=== PATIENT | female | born 1955 | race Caucasian/White ===

== ENCOUNTER → 2019-05-21 12:27 | Outpatient (CLI) | payer OTHER, SELFPAY ==
--- NOTE | ~2019-05-21 | MM_ITS ---
EXAMINATION: MM screening savage BI w lisa HISTORY: Screening mammogram, family history of breast cancer in her mother. TECHNIQUE: Craniocaudal and mediolateral oblique 3-D tomosynthesis images were obtained and synthetic 2-D images were generated. CAD analysis was submitted and interpreted. COMPARISON: 05/08/2018, 04/25/2017, 03/29/2016 BREAST PARENCHYMAL COMPOSITION: The breasts are heterogeneously dense, which may obscure small masses . FINDINGS: There is no evidence of suspicious mass, calcification, or architectural distortion to sugg est malignancy in either breast. There has been no suspicious interval change. IMPRESSION: 1. No mammographic evidence of malignancy. 2. Recommend routine screening mammography in one year. BI-RADS Category 1: Negative Reviewed, dictated and finalized at location A.
== END ==
PROVIDERS: Visit Provider Nurse Practitioner
DX: Z12.31 Encounter for screening mammogram for malignant neoplasm of breast (principal)
CPT/HCPCS: 77063; 77067

== ENCOUNTER → 2020-07-10 12:18 | Outpatient (CLI) | payer OTHER, SELFPAY ==
--- NOTE | ~2020-07-10 | MM_ITS ---
EXAMINATION: MM screening savage BI w lisa HISTORY: Screening TECHNIQUE: Craniocaudal and mediolateral oblique 3-D tomosynthesis images were obtained and synthetic 2-D images were generated. CAD analysis was submitted and interpreted. COMPARISON: No prior mammogram is available for comparison at this institution. BREAST PARENCHYMAL COMPOSITION: The breasts are heterogeneously dense, which may obscure small masses . FINDINGS: There is no evidence of suspicious mass, calcification, or architectural distortion to sugg est malignancy in either breast. There has been no suspicious interval change. IMPRESSION: 1. No mammographic evidence of malignancy. 2. Recommend routine screening mammography in one year. BI-RADS Category 1: Negative Reviewed, dictated and finalized at location A.
--- NOTE | ~2020-07-10 | DEXA_ITS ---
Bone Density Report Name: Maura Reeves Age: 64 Sex: Female Ethnicity: White Date of : 1955 Indication: monitoring treatment; Referring Provider: Elizabeth, Shabana Study: Bone densitometry was performed. Exam Date: July 10, 2020 Accession number: [id number] Bone Density: Region BMD T-score Z-score Classification AP Spine (L1-L4) 1.298 2.3 3.9 Normal Femoral Neck (Left) 0.890 0.4 1.8 Normal Total Hip (Left) 1.051 0.9 2.0 Normal Femoral Neck (Right) 0.871 0.2 1.6 Normal Total Hip (Right) 0.989 0.4 1.5 Normal Total Hip Mean 1.020 0.7 1.8 Normal World Health Organization criteria for BMD impression classify patients as: Normal (T-score at or above -1.0), Osteopenia (T-score between -1.0 and -2.5), or Osteoporosis (T-score at or below -2.5). 10-year Fracture Risk: FRAX not reported because: All T-scores for Spine Total, Hip Total, Femoral Neck at or above -1.0 Treated for osteoporosis Previous Exams: Region Exam Age BMD T-score BMD Change BMD Change Date g/cm2 vs Baseline vs Previous AP Spine(L1-L4) 07/10/2020 64 1.298 2.3 -0.037* 0.012 04/25/2017 61 1.286 2.2 -0.048* -0.038* 03/18/2014 58 1.324 2.5 -0.010 -0.010 03/30/2010 54 1.335 2.6 Total Hip(Left) 07/10/2020 64 1.051 0.9 -0.058* -0.008 04/25/2017 61 1.059 1.0 -0.050* -0.016 03/18/2014 58 1.074 1.1 -0.035* -0.035* 03/30/2010 54 1.109 1.4 Total Hip(Right) 07/10/2020 64 0.989 0.4 -0.078* -0.004 04/25/2017 61 0.993 0.4 -0.074* -0.059* 03/18/2014 58 1.053 0.9 -0.014 -0.014 03/30/2010 54 1.067 1.0 *Denotes significance at 95% confidence level, LSC for AP Spine = 0.022 g/cm2, LSC for Total Hip = 0.027 g/cm2 Clinical Information Provided by Patient: Is being treated for osteoporosis Has used the following medications: HRT (i.e. estrogen/hormone therapy), Vitamin D, Calcium, MTV Patient maximum height was 66.0 Menopause Age: 56 Drinks caffeinated beverages Onset of menses at age 16 Number of children 2 Impression: The patient has normal bone mass. No significant bone loss was observed. Discussion: PATIENT UNDER TREATMENT WITH NO SIGNIFICANT BMD LOSS SINCE LAST EXAM. In an untreated patient, BMD typically declines with age. A lack of decline or gain i
== END ==
PROVIDERS: Visit Provider Nurse Practitioner
DX: Z12.31 Encounter for screening mammogram for malignant neoplasm of breast (principal); Z13.820 Encounter for screening for osteoporosis
CPT/HCPCS: 77063; 77067; 77080

== ENCOUNTER → 2021-08-27 10:27 | Outpatient (CLI) | payer OTHER, SELFPAY ==
--- NOTE | ~2021-08-27 | MM_ITS ---
EXAMINATION: MM screening savage BI w lisa HISTORY: Screening TECHNIQUE: Craniocaudal and mediolateral oblique 3-D tomosynthesis images were obtained and synthetic 2-D images were generated. CAD analysis was submitted and interpreted. COMPARISON: Comparison to multiple prior studies sequentially, with oldest reviewed study dated 01/21. BREAST PARENCHYMAL COMPOSITION: The breasts are heterogeneously dense, which may obscure small masses . FINDINGS: There is no evidence of suspicious mass, calcification, or architectural distortion to sugg est malignancy in either breast. There has been no suspicious interval change. IMPRESSION: 1. No mammographic evidence of malignancy. 2. Recommend routine screening mammography in one year. BI-RADS Category 1: Negative Reviewed, dictated and finalized at location A.
== END ==
PROVIDERS: Visit Provider Nurse Practitioner
DX: Z12.31 Encounter for screening mammogram for malignant neoplasm of breast (principal)
CPT/HCPCS: 77063; 77067

== ENCOUNTER → 2022-08-30 10:01 | Outpatient (CLI) | payer OTHER, SELFPAY ==
--- NOTE | ~2022-08-30 | MM_ITS ---
EXAMINATION: MM screening savage BI w lisa HISTORY: Screening mammogram TECHNIQUE: Craniocaudal and mediolateral oblique 3-D tomosynthesis images were obtained and synthetic 2-D images were generated. CAD analysis was submitted and interpreted. COMPARISON: 08/27/2021, 07/10/2020, 05/21/2019 and lateral screening mammogram examinations BREAST PARENCHYMAL COMPOSITION: The breasts are heterogeneously dense, which may obscure small masses . FINDINGS: Benign-appearing arterial calcification in the upper outer quadrant of the right breast. Th ere is no evidence of suspicious mass, calcification, or architectural distortion to suggest malignan cy in either breast. There has been no suspicious interval change. IMPRESSION: 1. No mammographic evidence of malignancy. 2. Recommend routine screening mammography in one year. BI-RADS Category 1: Negative Reviewed, dictated and finalized at location A.
== END ==
PROVIDERS: PCP Obstetrics & Gynecology Gynecology; Visit Provider Obstetrics & Gynecology Gynecology
DX: Z12.31 Encounter for screening mammogram for malignant neoplasm of breast (principal)
CPT/HCPCS: 77063; 77067

== ENCOUNTER 2023-06-06 01:52 | Day surgery (SDC) | payer MEDICARE, SELFPAY ==
[2023-05-24 09:28] VITALS: BMI 19.4
--- NOTE | 2023-05-24 09:35 | PC.NURSE ---
Report to the Outpatient Waiting Room, entrance under the green pavilion located off [facility], at time ___9:45AM____ on date _06/06/23 . Planned Procedure Time: ___11:45AM . Time changes happen often and if your time is changed the preop area will call you the afternoon before. - You and your visitor will be asked to self-screen and do not enter if you have any COVID symptoms. - A mask is optional within the hospital at this time. Patients may have clear liquids (water, carbonated beverages, clear teas, apple juice) until 3 hours prior to surgery with a maximum of 20 ounces. - No food from midnight until time of surgery. Take the following medications with a SIP of water the morning of surgery: ___NONE DO NOT STOP ANY OF YOUR OTHER PRESCRIPTION MEDICATIONS PRIOR TO SURGERY ?EXCEPT THE FOLLOWING Medications to discontinue per physician ___HOLD ALL VITAMINS/SUPPLEMENTS 3 DAYS PRE-OP PER ANESTHESIA Date to take last dose 06/02/23 Please no make-up, nail chinese, hairspray, perfume, deodorant, or body powder the day of surgery. No jewelry (including any body piercings) or valuables the day of surgery, leave them at home. Please take a shower or bath the night before, or the morning of, surgery with an antibacterial soap. Wear comfortable, loose fitting clothing. Children are encouraged to wear pajamas. - Jewelry must be removed prior to entering the operating room. Rings and piercings that are not removed may be cut off. - The hospital will not accept responsibility for valuables. - Please leave all valuables, including medications, at home the day of surgery. If you are going home after surgery, a licensed shuttle bus driver must drive you home. - NO public transportation without another adult if you receive anesthesia. - We recommend that an adult stay with you for 24 hours following discharge. - We also recommend that you do not drive, make important decision, drink alcoholic beverages, or take any drugs that were not prescribed by your health care provider for at least 24 hours after your discharge time. For Pediatric surgeries, we recommend two adults accompany the child home. Follow any additional instructions given to you from your surgeon. If you or anyone in your household have experienced Covid symptoms in the past week, please notify your surgeon or the nurse liaison at the phone number below for possible testing. Telephone instructions given to ____PATIENT and asked if any additional questions and then verbalized understanding. Patient advised to call surgeon office or pre surgery nurse liaison [phone] if any additional questions.
--- NOTE | 2023-06-06 07:11 | WPDHPUPDATE1 ---
History and Physical Update Update Date/Time: 06/06/23 07:11 History and Physical has been reviewed, including an updated exam of the patient. There are NO changes in the patient's condition. Risks, benefits, and alternatives have been discussed and questions answered. Patient agrees to proceed with procedure.
--- NOTE | 2023-06-06 07:12 | PM.HPGS ---
History of Present Illness History of Present Illness Consent: Risks, benefits, and alternatives have been discussed and questions answered. Patient agrees to proceed with procedure. Chief complaint: Post Menopausal Bleeding Narrative: Maura Reeves is a 67 year old female with post menopausal bleeding. It was recommended to undergo D&C hysteroscopy. Risks of infection, bleeding, perforation, and possible pathology are discussed. Patient voices understanding and agrees to proceed. Review of Systems Review of Systems: not repeated day of surgery; patient states no changes in status PMFSH Past Medical History Medical History (Updated 06/06/23 @ 07:16 by Lenore Harris MD) History of ITP Irritable bowel syndrome (normal spontaneous vaginal delivery) x2 Paroxysmal tachycardia status post cardiac ablation in 2014 Rectovaginal fistula repaired in 1997 Surgical History Surgical History (Updated 06/06/23 @ 07:15 by Lenore Harris MD) S/P anterior colporrhaphy and posterior 2018 Social History Social History Smoking status: Never smoker Alcohol intake: current Living arrangements: with family Additional living arrangements comments: HUSB Spiritual care concerns: No Meds Home Medications and Allergies Home Medications Medication Instructions Recorded Confirmed Type calcium 600 mg capsule 600 mg PO DAILY 05/24/23 05/24/23 History glucosamine sulf dipot 1 cap PO DAILY 05/24/23 05/24/23 History chlr,msm,chond 550 mg-C 30 mg-cornel 1 mg capsule (Glucosamine Chondroitin) linaclotide 290 mcg capsule 290 mcg PO DAILY 05/24/23 05/24/23 History (Linzess) multivitamin 1 tablet PO DAILY 05/24/23 05/24/23 History omega 0-xnc-ves-fish oil 1,000 mg 1 cap PO DAILY 05/24/23 05/24/23 History (120 mg-180 mg) capsule (Fish Oil) Allergies Allergy/AdvReac Type Severity Reaction Status Date / Time Cephalosporins Allergy Severe HIVES Verified 05/24/23 09:27 ceftriaxone Allergy Unknown HIVES Verified 05/24/23 09:27 Exam Const: General: healthy appearing and alert Orientation/consciousness: patient oriented x3 Resp: Effort & Inspection: normal respiratory effort GI: GI Palp: Yes Soft to palpation, No Tenderness to palpation present (GI) and No Palpable mass present : External Female Exam: normal external appearance Speculum Exam - Vagina: normal appearance of the vagina and normal vaginal discharge Speculum Exam - Cervix: normal appearance of the cervix Bimanual exam- vagina & uterus: uterine size normal and consistency normal Bimanual Exam- Adnexa, other: normal adnexae and No adnexal tenderness Neuro: General: patient oriented x3 Assessment and Plan Assessment and plan (1) Post-menopausal bleeding: Code(s): N95.0 - Postmenopausal bleeding Status: Acute Assessment and Plan: plan to proceed with D&C hysteroscopy
[2023-06-06 10:11] VITALS: BP 117/53; PULSE 53; RESP 16; TEMP 36.8; O2SAT 100
[2023-06-06] MEDS: LACTATED RINGERS 1,000 ML 30 ML IV CONT (10:50)
[2023-06-06] MEDS: ACETAMINOPHEN 500 MG TABLET 1000 MG PO (10:59)
--- NOTE | 2023-06-06 11:36 | WPDANESEPPF ---
Anes - Initial Pre Proc Eval Procedure: Operation Date: 06/06/23 11:45 Proposed Procedures p Hysteroscopy Dilation and Curettage - Lenore Harris MD Date/Time: 06/06/23 11:36 Surgeon: Lenore Harris MD Pre Op Diagnosis: Post Menopausal Bleeding Patient Data Age: 67 Gender: F Height: 1.65 m Weight: 50.1 kg Last Vital Signs Temp 98.3 F 06/06/23 10:11 Pulse 53 L 06/06/23 10:11 Resp 16 06/06/23 10:11 BP 117/53 L 06/06/23 10:11 Pulse Ox 100 06/06/23 10:11 O2 Del Method Room Air 06/06/23 10:11 Allergies Allergy/AdvReac Type Severity Reaction Status Date / Time Cephalosporins Allergy Severe HIVES Verified 06/06/23 10:05 ceftriaxone Allergy Unknown HIVES Verified 06/06/23 10:05 Home Medications Medication Instructions Recorded Confirmed Type calcium 600 mg capsule 600 mg PO DAILY 05/24/23 06/06/23 History glucosamine sulf dipot 1 cap PO DAILY 05/24/23 06/06/23 History chlr,msm,chond 550 mg-C 30 mg-cornel 1 mg capsule (Glucosamine Chondroitin) linaclotide 290 mcg capsule 290 mcg PO DAILY 05/24/23 06/06/23 History (Linzess) multivitamin 1 tablet PO DAILY 05/24/23 06/06/23 History omega 0-lir-dnw-fish oil 1,000 mg 1 cap PO DAILY 05/24/23 06/06/23 History (120 mg-180 mg) capsule (Fish Oil) Patient hx anesthesia problems: none Family hx anesthesia problems: none Results Review: All pre-operative results and documents have been reviewed as part of the pre-operative evaluation. [facility] Past Medical History Medical History History of ITP Irritable bowel syndrome (normal spontaneous vaginal delivery) x2 Paroxysmal tachycardia status post cardiac ablation in 2014 Rectovaginal fistula repaired in 1997 Surgical History Surgical History S/P anterior colporrhaphy and posterior 2018 Social History Social History (Reviewed 06/06/23 @ 11:36 by SHARI Steinberg Smoking status: Never smoker Alcohol intake: current Living arrangements: with family Additional living arrangements comments: HUSB Spiritual care concerns: No Anes - Eval Final PreProcedure Day of Procedure 06/06/23 11:36 Patient weight: normal Heart: regular rate and rhythm Lungs: clear to auscultation Airway: Mallampati scale class 1 Neurological: alert and oriented Last oral intake: >/= 8 hours ASA classification: II Emergent: no Anesthetic plan: proceed Anesthesia type and monitoring: general GIVS and standard monitoring Results Review: All pre-operative results and documents have been reviewed as part of the pre-operative evaluation. S/p ablation for SVT 2016 w success, no po meds needed post procedure. Informed Consent: The patient's anesthetic plan and its attendant risks and benefits were discussed with the patient/family/POA. Questions were solicited and answers provided to the satisfaction of the patient/family/POA.
--- NOTE | 2023-06-06 12:11 | W.PM.PROC2 ---
Procedure Note - Detailed Date of Procedure 06/06/23 Pre-op Diagnosis Post Menopausal Bleeding Post-op Diagnosis Same Procedure Performed D&C hysteroscopy with resection of polyp Surgeon Lenore Harris MD Anesthesia MAC Findings internal cervical stenosis; uterus sounds to 9cm and appears grossly atrophic; there is a clear polyp on the anterior fundus; there was a small perforation at the right fundus just off midline Description of Procedure The patient is taken to the operating room and placed under anesthesia in the dorsal lithotomy position. The bivalve speculum was placed in the vagina and the cervix grasped on the anterior lip with a tenaculum. The uterus is attempted to be sounded and not successful due to internal cervical stenosis. The small Hegar dilator is used and able to pass the stenosis. The cervix is serially dilated to a 5 Hegar. The uterus is then sounded. The hysteroscope was placed with the above sounded findings. The visualization remained good throughout the entire procedure. There was a small perforation noted. The small Aveeta resection device was used under direct visualization only to remove the clear polyp with anterior fundus away from the perforation area. The instruments were then removed and curettings were not taken. Sponge, needle, and instrument counts are correct per the OR staff. The patient was awakened from anesthesia and taken to recovery in stable condition. Estimated Blood Loss 5 Drains No Packing No Pathology Yes ( Endometrial shavings) Complications Other complications ( small perforation of the uterus) Condition Stable Disposition PACU
[2023-06-06 12:15] VITALS: BP 89/37; PULSE 57; RESP 12; O2SAT 100
[2023-06-06 12:45] VITALS: BP 100/45; PULSE 45
[2023-06-06 13:15] VITALS: BP 104/43; PULSE 42
== END 2023-06-06 13:20 | disposition home or self-care (01) ==
PROVIDERS: Visit Provider Obstetrics & Gynecology Gynecology
PROC: 0U5B8ZZ Destruction of Endometrium, Via Natural or Artificial Opening Endoscopic (ICD-10-PCS; CPT 58563; principal; 2023-06-06 11:45)
DX: N95.0 Postmenopausal bleeding (principal); N88.2 Stricture and stenosis of cervix uteri; K58.9 Irritable bowel syndrome, unspecified; I47.9 Paroxysmal tachycardia, unspecified; Z98.890 Other specified postprocedural states; Z86.79 Personal history of other diseases of the circulatory system; Z86.2 Personal history of diseases of the blood and blood-forming organs and certain disorders involving the immune mechanism
CPT/HCPCS: 58558; 88305; A9270; J1596; J2250; J2405; J2704; J3010; J7120

== ENCOUNTER 2023-11-03 11:14 | Outpatient (CLI) | payer MEDICARE, OTHER, SELFPAY ==
--- NOTE | ~2023-11-03 | MM_ITS ---
EXAMINATION: MM screening savage BI w lisa HISTORY: Screening mammogram, family history of breast cancer in her mother. TECHNIQUE: Craniocaudal and mediolateral oblique 3-D tomosynthesis images were obtained and synthetic 2-D images were generated. CAD analysis was submitted and interpreted. COMPARISON: 08/30/2022, 08/27/2021, 06/30/2020 BREAST PARENCHYMAL COMPOSITION:Dense: The breasts are extremely dense, which lowers the sensitivity o f mammography. FINDINGS: No suspicious mass, calcification, or architectural distortion are identified in either parth ast to suggest malignancy. There has been no suspicious interval change. IMPRESSION: No mammographic evidence of malignancy. Recommend routine screening mammography in one year. BI-RADS Category 1: Negative Reviewed, dictated and finalized at location .
== END 2023-11-03 11:15 | disposition home or self-care (01) ==
LOC: MICIMG 11:18
PROVIDERS: PCP Obstetrics & Gynecology Gynecology; Visit Provider Obstetrics & Gynecology Gynecology
DX: Z12.31 Encounter for screening mammogram for malignant neoplasm of breast (principal)
CPT/HCPCS: 77063; 77067

== ENCOUNTER 2024-06-23 11:20 | Outpatient (CLI) | payer MEDICARE, OTHER, SELFPAY ==
--- NOTE | ~2024-06-23 | US_ITS ---
EXAMINATION: US transvaginal INDICATION: Postmenopausal bleeding Comparison:No prior studies for comparison. TECHNIQUE: Multiple endovaginal sonographic images of the pelvis performed. FINDINGS: The uterus measures 3.7 x 2.1 x 4.6 cm. The endometrial complex measures 8 mm. The ovaries are not identified, likely atrophic. There is no free fluid in the pelvis. There are no abnormal masses seen on either side. IMPRESSION: 1. Thickened endomtrial complex. The differential diagnosis includes endometrial hyperplasia, polyp a nd carcinoma. Biopsy is recommended. Reviewed, dictated and finalized at location A. IMPRESSION: 1. Thickened endomtrial complex. The differential diagnosis includes endometria l hyperplasia, polyp and carcinoma. Biopsy is recommended.
== END 2024-06-23 11:21 | disposition home or self-care (01) ==
PROVIDERS: PCP Nurse Practitioner; Visit Provider Nurse Practitioner
DX: R93.89 Abnormal findings on diagnostic imaging of other specified body structures (principal)
CPT/HCPCS: 76830

== ENCOUNTER 2024-07-02 00:55 | Day surgery (SDC) | payer MEDICARE, OTHER, SELFPAY ==
--- NOTE | 2024-06-25 15:58 | PC.NURSE ---
Addendum entered by Adriana Platt RN 06/25/24 16:05: Hold all vitamins and supplements for 3 days per anesthesiologist.Date of last dose is 06/28/24- pt is aware ADEEL Original Note: Report to the Outpatient Waiting Room, entrance under the green pavilion located off [facility], at time _1230pm on date ___07/02/24____. Planned Procedure Time: ___2:30pm .? Time changes happen often and if your time is changed the preop area will call you the afternoon before. - You and your visitor will be asked to self-screen and do not enter if you have any COVID symptoms. Please call surgeon if you need to reschedule. - A mask is optional within the hospital at this time. Patients may have clear liquids (water, carbonated beverages, clear teas, apple juice) until 3 hours prior to surgery with a maximum of 20 ounces. - No food from midnight until time of surgery and no smoking, or chewing tobacco (or any form of nicotine). No chewing gum, candy or mints. (1130am) Take only the following medications with a SIP of water on the morning of surgery: __Tylenol if needed DO NOT STOP ANY OF YOUR OTHER PRESCRIPTION MEDICATIONS PRIOR TO SURGERY EXCEPT THE FOLLOWING Hold all vitamins and supplements for 3 days per anesthesiologist.Date Medications to discontinue per physician NONE Date to take last dose____NONE Please no make-up, nail yoruba, hairspray, perfume, deodorant, or body powder the day of surgery.? No jewelry (including any body piercings) or valuables the day of surgery, leave them at home.? Please take a shower or bath the night before, or the morning of, surgery with an antibacterial soap.? Wear comfortable, loose fitting clothing.? - Jewelry must be removed prior to entering the operating room.? Rings and piercings that are not removed may be cut off. - The hospital will not accept responsibility for valuables.? - Please leave all valuables, including medications, at home the day of surgery. If you are going home after surgery, a licensed cdl dedicated truck driver must drive you home.? - NO public transportation without another adult if you receive anesthesia. - We recommend that an adult stay with you for 24 hours following discharge. - We also recommend that you do not drive, make important decision, drink alcoholic beverages, or take any drugs that were not prescribed by your health care provider for at least 24 hours after your discharge time. Follow any additional instructions given to you from your surgeon. Telephone instructions given to ___Patient and asked if any additional questions and then verbalized understanding. Patient advised to call surgeon office or pre surgery nurse liaison [phone] if any additional questions.
[2024-06-25 16:05] VITALS: BMI 19.3
--- OUTSIDE RECORDS SUMMARY | 2024-07-02 01:00 | XMS_ITS | Encounter Summary ---
Author Organization [facility] Address [facility] [place] [address] Care Team Providers Care Mycologist Name Role Phone Foster Fowler MD Primary Care Provider [phone] Encounter Details Date Type Department Care Team (Late st Contact Info) Description 07/29/2018 Abstract [facility]FL CONVERSION [address] [place] [address] , Generic Conversion, Social History Tobacco Use Types Packs/Day Years Used Date Smoking Tobacco: Never Assessed Comments Unknown Sex and Gender Information Value Date Recorded Sex Assigned at Not on file Legal Sex Female 5:59 PM [employer] Gender Identity Not on file Sexual Orientation Not on file documented as of this encounter Plan of Treatment Not on file documented as of this encounter Visit Diagnoses Not on filedocumented in this encounter Care Teams Mycologist Relationship Specialty Start Date End Date Foster Fowler MD [address] [place] [address] PCP - General FAMILY PRACTICE 05/16/23 documented as of this encounter
--- OUTSIDE RECORDS SUMMARY | 2024-07-02 01:01 | XMS_ITS | CONTINUITY OF CARE DOCUMENT ---
Author Name austin avila Address Unknown Organization [facility] [address] [address] Address [address] [place] [address] Phone [phone] Care Team Providers Care Dean Of [employer] Name Role Phone Yordy Kincaid DO Unavailable ROSA WILKINS, JAMES Larkin Unavailable [phone] Bentley WILKINS, Kaila Capps Unavailable PROBLEMS Condition Status Date Provider Notes PAC active Nicole Strickland RN SVT active Nicole Strickland RN ENCOUNTERS Date Type Provider Location Encounter Diagnosis - In-person encounter Office Visit Yordy Kincaid DO [facility] Office VITAL SIGNS Date Observation Value Provider blood pressure, diastolic 60 mm[Hg] Merlin Carmen blood pressure, systolic 102 mm[Hg] Stacey Carmen pulse rate 70 /min Evelyn Carmen oxygen saturation, oximetry 98 % Evelyn Carmen respiratory rate E&M 16 /min Evelyn Carmen Body Mass Index (Ratio) 19.63 kg/m2 Austin Carmen weight E&M 118 [lb_av] Evelyn Carmen height E&M 65 [in_i] Evelyn Carmen HISTORY OF MEDICATION USE Medication Status Instructions Dates Provider Indications Com ments MEDROXYPROGESTERONE ACETATE 2.5 MG ORAL TABLET active one tab daily Samantha Ketterer ESTRADIOL 1 MG ORAL TABLET active one tab daily Samantha Carias LINZESS 145 MCG ORAL CAPSULE active one tab daily Samantha Carias CARDIZEM 30 MG ORAL TABLET completed when needed - Evelyn Carmen FLECAINIDE ACETATE 50 MG ORAL TABLET completed two tabs in the Am and one tab in the PM - Evelyn Carmen SOCIAL HISTORY Date Observation Value Provider social history reviewed E&M revi ewed - no changes required Yordy Kincaid DO number of grandchildren Yordy Carmen smoking status Never smoker Evelyn Carmen FAMILY HISTORY Family Member Condition Mother Family History Unkno wn INSURANCE PROVIDERS Payer name Policy type / Coverage type [employer] red democr[employer] ID [id number] Other [id number] TREATMENT PLAN Date Name Performer Cardiology Yordy Kincaid DO Cardiology:s/p succe ssful ablation concealed left lateral accessary pathway Yordy Kincaid DO HISTORY OF PROCEDURES Procedure Date Procedure Name Provider Procedure Notes S tatus EKG Yordy Kincaid DO comple chong SNOMED-CT: [id number] Current Medications Documented Yordy Kincaid DO completed
--- OUTSIDE RECORDS SUMMARY | 2024-07-02 01:01 | XMS_ITS | Data Portability ---
Author Organization [facility], [address] [place]rology ([place]) Address [address] [place] [address] Care Team Providers Care Trailer Steerer Name Role Phone GELYFOSTER Eid Primary Care Provider [phone] Assessment Encounter Date Assessment Date Assessment LastModified by Organization Details LastModified Time 05/23/2024 05/23/2024 1. The following diagnosis is categorized as a SELF-LIMITED OR MINOR PROBLEM: We discussed the fact that lentigines are actinically induced and that they are benign. We discussed the fact that they should be watched carefully for change. We discussed the importance of photoprotection using protective clothing and sunscreen with SPF thirty or higher on a regular basis. 2. The following diagnosis is categorized as a CHRONIC ILLNESS (STABLE/At Pt Goal): Benign nevi. We discussed the importance of watching for new and/or changing lesions. We discussed the worrisome changes to watch for that could indicate a melanoma. We discussed the importance of photoprotection using protective clothing and sunscreen with OTC SPF 30 or higher. Avoid peak hours of sun exposure (10am-3pm). We discussed the importance of regular self-skin examinations. 3. The following diagnosis is categorized as a SELF LIMITED OR MINOR PROBLEM: Seborrheic keratosis,: We discussed the fact that these are benign lesions requiring no treatment. We discussed the fact that removal would be considered a cosmetic procedure and would not be covered by insurance. The patient was advised that more such lesions may develop. The patient is not bothered by the lesions and does not wish to have them treated. We will observe. OTC tx for SK: wart removers, dermabrasion, 35% hydrogen peroxide daily with paint or makeup brush 4. The following diagnosis is categorized as a CHRONIC ILLNESS(At goal) Rosacea: Discussed diagnosis and treatment options. Female patients advised to stop all medication if planning or gets and to let us know. Explained potential aggravators include sunlight, spicy foods, alcohol, and chocolate. Recommend broad spectrum SPF 30 non-comedogenic daily. Recommend avoiding other known triggers. Recommend bland moisturizer such as CeraVe/Eucerin/Van icream daily. PRESCRIPTION DRUG MANAGEMENT was performed including discussion with the patient and/or family member that may include dose, expectations of treatment including potential side effects, review of patient response, and when necessary or clinically appropriate change in medication or dosage. For topical therapy discussed side effects may include irritation/redness , burning sensation upon application, dryness/desquamati on, and the potential for sensitization - Continue RX metronidazole 0.75% gel twice a day to affected areas on face. 5. The following diagnosis is categorized as a CHRONIC ILLNESS : History of non-melanoma skin cancer per pt hx only. We discussed the importance of regular skin examinations by a physician as well as monthly self-skin examinations. No evidence of recurrence in previously treated areas. We discussed the worrisome changes to watch for in skin lesions. We discussed the importance of watching for new and/or changing lesions. We discussed the importance of photoprotection using protective clothing and sunscreen with SPF 30 or higher. Pt was instructed to call the office if develops a lesion which grows or changed rapidly. 6. The following diagnosis is categorized as a CHRONIC ILLNESS Actinic keratosis/Actinic damage: I suggested we treat the lesions with liquid nitrogen today. The risks and benefits of the procedure, the risks and benefits of alternative procedures, as well as the possible consequences of not undergoing the procedure were discussed. The patient verbalized understanding and gives consent to proceed. Liquid nitrogen was applied to all affected areas. Side effects of pain, redness, blistering, scabbing, hypopigmentation and recurrence were discussed with the patient. The patient was advised that these are pre-skin cancers: they have a small risk of developing into skin cancers and their presence signifies an increased risk for developing skin cancer. Thus she was advised to use a sunscreen of at least SPF 30 and wear protective clothing. (6) Lesions were treated on the right arm (2), nose (1), upper cutaneous lip (1), left cheek (1), left neck (1). Pt to call if lesions do not heal/resolve as expected. Pt voiced understanding Of note, patient treated with RX Skin Medicinals 5-Fluourouracil 5%/Calcipotriene 0.005% cream to nose BID x7 days with appropriate reaction in 04/2023. I asked pt to return in 1 year for TBSE/Hx AK/Hx NMSC. Pt will call with any questions or concerns in the meantime. [email or web address] Not available 05/24/2024 10:05:52 Plan of Treatment Reminders Order Date Submit Date Provider Last Modified By Organization Details Last Modified Time Details Appointments Establish ed Patient 10.EST 2025 09:20A M Dr. Miranda Aldrich Not available Not available Not available Lab None recorded. Referral None recorded. Procedures None recorded. Surgeries None recorded. Imaging None recorded. Medication Orders None recorded. Patient TargetsNo targets recorded. Patient InstructionsNo instructions recorded. Reason for Referral None Reported. Problems Name Problem SNOMED Code Status Onset Date Resolution Date Notes Provider Name and Address Organization Details Recorded Time Leukopen ia 67027800 Active 2023 s/p w/u by [facility] fall incl nmL B12 & Folate then. Plan annual CBC and return to Hematolo gy if worsenin g. WBC stable at 3.6 Arielle Dubois, FELIPA, [facility] [address] [place] [address], [phone], [facility] 4 22:20:35 Constipa tion 11328655 Active f/b GI w/ tx incl Miralax &Rx Linzess (initiat ed by, so logistic ally Rx'd thru Gyne provider ) Foster Fowler MD [address] [place] [address], [phone], [facility] 4 23:04:41 Congenit al redundan t colon 988514758 Active 2023 Nicole Quach APRN, [facility] [address] [place] [address], [phone] 3, [facility] 4 11:43:16 Screenin g for malignan t neoplasm of colon Active s/p colonosc opy by GI who recommen ded then repeat in 5yrs. Foster Fowler MD [address] [facility], [facility] [place], [address], [facility] 4 23:03:22 Age-rela chong nuclear cataract of right eye [id number] 9109 Active 2023 Deanne Jason null, [facility] 4 10:34:07 Pain of joint 27393386 Active 2023 negative CCP, RF, Uric acid, and Lyme AB on . primarly hands, hips. Likely OA. Mangaged w/ OTC NSAIDs. Consider imaging/ ortho referral if/when pt desires. Arielle Dubois APRN, [facility] [address] [facility], [place], [address], [facility] 4 22:19:21 Irritabl e bowel syndrome 32059760 Active 2023 onset in adulthoo d. Prior records note tx Linzess since (02/2015) . Arielle Dubois APRN, [facility] [address] [facility], [facility] [place], [address], [facility] 4 22:20:13 Hyperlip idemia screenin g Active 2023 baseline : T 183, HDL 84, LDL 84. Low risk, no statin indicate d ACC. T 157, LDL 77, HDL 67 low risk (2.3%) Next lipids due 2025. Arielle Dubois APRN, [facility] [address] [facility], [place], [address], [facility] 4 22:21:11 Sampling of cervix for Papanico laou smear Completed 202312/19/2023 f/b Gyne (Dr. Arnold? ) Arielle Dubois APRN, [facility] [address] [facility], [place], [address], [facility] 4 22:21:32 Right upper quadrant pain 382687798 Completed 202312/19/2023 episodic (1-2x/mo ) since . nmL US, HIDA, CMP, & H.pylori fall. Improved () w/ PPI (possibl e esoph' spasm). Arielle Dubois APRN, [facility] [address] [place] [address], [phone], [facility] 4 22:21:51 Lumbago with sciatica 602811836 Active 2023 dx mid age 50's. Improved w/ PT then (& home exercise s since). Sx on right also as of summer. Con't home PT exercise s. Would refer to PT /ortho if /when pt desires (using Aleve as needed) Arielle Dubois APRN, [facility] [address] [place] [address], [address], [facility] 4 22:22:20 Shortene d [place] interval 95237037 Active 2023 OH 109ms on 03/24/17 EKG. Arielle Dubois APRN, [facility] [address] [place] [address], [address], [facility] 4 22:22:39 History of thromboc ytopenia 60714883185 108 Active 2023 s/p w/u by [facility] early where recomndd Q6mo CBC & f/u w/ HemeOnc if < 90. Stable ; PLT nmL (150) Arielle Dubois APRN, [facility] [address] [place] [address], [address], [facility] 4 22:23:48 Screenin g mammogra phy Active 2023 f/b Gyne Arielle Dubois APRN, [facility] [address] [place] [address], [address], [facility] 4 22:24:22 Age-rela chong nuclear cataract of left eye 52709946948 9102 Completed 202301/12/2024 s/p surgical tx 01/12/24 Foster Fowler MD [address] [place] [address], [phone], [facility] 4 13:31:40 Lentigo - freckle 278394290 Active 2024 [facility], [facility] 5 10:14:50 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 956690054 Active 2024 [facility], [facility] 5 10:14:50 Seborrhe ic keratosi s 970298171 Active 2024 [facility], [facility] 5 10:14:50 Melanocy tic nevus of right lower limb 48735181008 9108 Active 2024 [facility], [facility] 5 10:14:50 Actinic keratosi s 677660471 Active 2024 [facility], [facility] 5 10:15:11 Rosacea 570340199 Active 2024 [facility] 5 10:15:21 Problem Notes Documentation Provider Name and Address Organization Details Recorded Time [facility] [address] [place] [phone] Venkatesh Hair 68yo F 1955 #[id number] 01/04/2024 Chandu Fowler MD, Venkatesh Hair was seen in our office today 01/04/2024, and a copy of that evaluation is enclosed. Thank you for allowing us to participate in the care of your patient. Please contact us with any questions. Sincerely, Electronically Signed by: NNAMDI HERRERA MD Encounter Reason/DateNone recorded 01/04/2024 - 06:00AM - [facility] ([place])ProblemsReviewed Problems Leukopenia - Onset: 10/27/2023 - s/p w/u by [facility] fall incl nmL B12 & Folate then. Plan annual CBC and return to Hematology if worsening. WBC stable at 3.6 Constipation - f/b GI w/ tx incl Miralax &Rx Linzess (initiated by, so logistically Rx'd thru Gyne provider) Irritable bowel syndrome - Onset: 12/19/2023 - onset in adulthood. Prior records note tx Linzess since (02/2015). Joint pain - Onset: 12/19/2023 - negative CCP, RF, Uric acid, and Lyme AB on . primarly hands, hips. Likely OA. Mangaged w/ OTC NSAIDs. Consider imaging/ ortho referral if/when pt desires. Lumbago with sciatica - Onset: 12/19/2023, Left - dx mid age 50's. Improved w/ PT then (& home exercises since). Sx on right also as of summer. Con't home PT exercises. Would refer to PT /ortho if /when pt desires (using Aleve as needed) Congenital redundant colon - Onset: 11/02/2023 Shortened OH interval - Onset: 12/19/2023 - OH 109ms on 03/24/17 EKG. Screening mammography - Onset: 12/19/2023 - f/b Gyne Screening for malignant neoplasm of colon - s/p colonoscopy by GI who recommended then repeat in 5yrs. Hyperlipidemia screening - Onset: 12/19/2023 - baseline : T 183, HDL 84, LDL 84. Low risk, no statin indicated per ACC. T 157, LDL 77, HDL 67 low risk (2.3%) Next lipids due 2025. Age-related nuclear cataract of right eye - Onset: 12/14/2023 History of thrombocytopenia - Onset: 12/19/2023 - s/p w/u by [facility] early where recomndd Q6mo CBC & f/u w/ Aletac if < 90. Stable ; PLT nmL (150) Age-related nuclear cataract of left eye - Onset: 12/21/2023 Allergies Allergies not reviewed (last reviewed 01/04/2024) ROCEPHIN: Hives - Reaction: Hives; No Known Allergies (InActive) OnsetDate: 12/11/2014; Comment: No Known Allergies ; Some allergies listed in Document: #[id number] could not be added to this patient's chart. Please review this document and add these allergies to the patient's chart manually as needed. Medications Medications not reviewed (last reviewed 12/20/2023) NameDate Source calcium1 Tab daily12/20/23 entered Freya Acosta Glucosamine Chondroitin1 Tab daily12/20/23 entered Freya Acosta ketorolac 0.5 % eye dropsINSTILL 1 DROP IN RIGHT EYE FOUR TIMES DAILY STARTING 3 DAYS BEFORE QHIHCCM56/22/24 filled surescripts Linzess 290 mcg capsuleTAKE 1 CAPSULE BY MOUTH EVERY DAY12/13/23 filled surescripts Multivitamin 50 Plus tabletTake 1 tablet(s) every day by oral route.12/20/23 entered Freya Acosta ofloxacin 0.3 % eye dropsINSTILL 1 DROP IN RIGHT EYE FOUR TIMES DAILY STARTING 3 DAYS BEFORE GNYXJLL68/22/24 filled surescripts prednisoLONE acetate 1 % eye drops,suspensionINSTILL 1 DROP INTO RIGHT EYE FOUR TIMES DAILY STARTING 3 DAYS BEFORE DSFYXPB60/22/24 filled surescripts Family History Mother - Family history of malignant neoplasm Maternal Grandmother - Family history of malignant neoplasm - breast Social HistorySocial History not reviewed (last reviewed 12/20/2023) Substance UseDo you or have you ever smoked tobacco?: Never smokerWhat is your level of alcohol consumption?: OccasionalHow many times per week do you consume alcohol?: Less than 1 time per weekDo you use any illicit or recreational drugs?: NoWhat was the date of your most recent tobacco screening?: 11/02/2023Education and OccupationAre you currently employed?: NoWhat is your occupation?: RetiredAdvance DirectiveWhat is your code status?: DNRDo you have a medical power of ip attorney?: YesAdopted child, Type: Chronic Last Edited: 19 Dec 2015 1:49PM Last Reviewed Date: 20151219 SnomedCode: [id number] Never a smoker, Type: Chronic Identified By: QUEEN (SIU) AMERICOVANESSA Last Edited: 02 Jan 2015 5:41AM Last Reviewed Date: 20150102 SnomedCode: [id number] Surgical History Repair of vaginal wall prolapse - cystocele Colonoscopy with biopsy - Colonoscopy (camera from below into colon) Additional HistoryNone recordedHistory of Present IllnessNone recordedReview of SystemsNone recordedPhysical ExamNone recordedProcedure DocumentationSC Operative Report:Operative Report: PATIENT NAME: venkatesh hair PREOPERATIVE DIAGNOSIS: Senile cataract of the right eye. POSTOPERATIVE DIAGNOSIS: Senile cataract of the right eye. PROCEDURE PERFORMED: Cataract extraction/phacoemulsificatio n with intraocular lens implant of the right eye. SURGEON: Nnamdi Herrera MD ANESTHESIA: Topical, intracameral, monitored anesthesia care. COMPLICATIONS: None. IMPLANTS: A 20.0-diopter Ethan CNAOTO intraocular lens was placed into the capsular bag for a target refraction of -0.49. HISTORY: The risks of cataract surgery were discussed with the patient in-depth previously. The risks that were discussed included, but were not limited to, infection, bleeding, tearing of the posterior lens capsule, incomplete cataract removal, loss of lens material into the posterior chamber or vitreous, low eye pressure, high eye pressure, retinal tear, retinal detachment, retinal edema, corneal edema, double vision, loss of vision, loss of the eye, and possible requirement of additional surgery. The patient expressed an understanding of these risks and wished to proceed with the surgery. Consent was signed on the day of surgery. On the day of surgery, the patient was brought into the preoperative holding area. The surgical eye was marked. The patient was then brought into the Operating Room, where they were connected to an market analysis director and pulse oximeter. Topical anesthesia in the form of tetracaine 1% was applied. The surgical eye was then prepped and draped in the usual sterile ophthalmic fashion. Following this, a lid speculum was placed into the fornices, and the operating microscope was brought into position. With the assistance of forceps, a paracentesis wound was created. The anterior chamber was then filled with Shugarcaine, followed by Viscoat to create a stable surgical base. A biplanar incision was then initiated at the temporal limbus using a microkeratome. A cystotome was then used to initiate a capsulorrhexis, which was completed in a 360-degree continuous curvilinear fashion. Balanced salt solution was then used to perform a thorough hydrodissection of the lens. The lens nucleus was then noted to be spinning freely within the bag. Primary phacoemulsification was initiated in a [id number]-mummutk format. After 1 groove was created to divide the lens in half, the lens nucleus was cracked and then rotated. Another groove was created to divide the lens into 3 total pieces. All pieces of the nuclear lens material were removed, followed by the removal of the remaining lens cortex using the I&A handpiece. Provisc was then injected to create a space for the lens implant. No lens material remained, and the posterior capsule was noted to be intact. A 20.0-diopter CNAOTO Ethan lens was then loaded into the injector. The injector was positioned at the plane of the anterior capsular bag. The lens was injected. The lens was well centered. Viscoelastic was removed using the I&A handpiece. The wounds were stromally hydrated. Hao tests for both wounds were negative. Antibiotic eye drops were applied to the surgical eye. The patient was undraped. The patient was then transported to the PACU in stable condition, having tolerated the procedure well without any complications. DISCHARGE INSTRUCTIONS: The patient was instructed to keep the eye shield in place unless administering eyedrops. They were told to follow up in the Eye Clinic the following morning. They were told not to do any rubbing of the eye, squeezing of the eye or heavy lifting. They were told to call the Eye Clinic immediately if he experienced any drop in vision, increased pain, redness, or sensitivity to light. Power: CDE 17.41 Assessment/PlanNone recorded Return to Office Nnamdi Herrera MD for Post Op 10.EST at [address] Ophthalmology ([place]) on 01/05/2024 at 12:50 PM Nnamdi Herrera MD for Nurse Surgery Block 15.SURG at [facility] Nurse Surgery Board ([place]) on 01/12/2024 at 06:45 AM OR 05, for [facility] Surgery.SURG at [facility] OR Anesthesia [place]) on 01/12/2024 at 07:30 AM Nnamdi Herrera MD for [facility] Surgery.SURG at [facility] [place]hthalmology [place] on 01/12/2024 at 07:30 AM Nnamdi Herrera MD for Post Op 10.EST at [facility] 3rd Ophthalmology ([place]) on 01/13/2024 at 09:20 AM Miranda Genao APRN, [facility] for Established Patient 15.EST at [facility] 4th Derm ([place]) on 05/23/2024 at 09:15 AM Arielle Dubois APRN, [facility] [address] [place] [address], [phone], [facility] 01/05/2024 16:49:29 [facility] [address] [place] [phone] Venkatesh Bright Leandro 68yo F 1955 #[id number] 01/12/2024 Chandu Fowler MD, Venkatesh Hair was seen in our office today 01/12/2024, and a copy of that evaluation is enclosed. Thank you for allowing us to participate in the care of your patient. Please contact us with any questions. Sincerely, Electronically Signed by: NNAMDI HERRERA MD Encounter Reason/DateNone recorded 01/12/2024 - 07:30AM - [facility] [place]mology ([place])ProblemsReviewed Problems Leukopenia - Onset: 10/27/2023 - s/p w/u by [facility] fall incl nmL B12 & Folate then. Plan annual CBC and return to Hematology if worsening. WBC stable at 3.6 Constipation - f/b GI w/ tx incl Miralax &Rx Linzess (initiated by, so logistically Rx'd thru Gyne provider) Irritable bowel syndrome - Onset: 12/19/2023 - onset in adulthood. Prior records note tx Linzess since (02/2015). Joint pain - Onset: 12/19/2023 - negative CCP, RF, Uric acid, and Lyme AB on . primarly hands, hips. Likely OA. Mangaged w/ OTC NSAIDs. Consider imaging/ ortho referral if/when pt desires. Lumbago with sciatica - Onset: 12/19/2023, Left - dx mid age 50's. Improved w/ PT then (& home exercises since). Sx on right also as of summer '19. Con't home PT exercises. Would refer to PT /ortho if /when pt desires (using Aleve as needed) Congenital redundant colon - Onset: 11/02/2023 Shortened OH interval - Onset: 12/19/2023 - OH 109ms on 03/24/17 EKG. Screening mammography - Onset: 12/19/2023 - f/b Gyne Screening for malignant neoplasm of colon - s/p colonoscopy by GI who recommended then repeat in 5yrs. Hyperlipidemia screening - Onset: 12/19/2023 - baseline : T 183, HDL 84, LDL 84. Low risk, no statin indicated per ACC. T 157, LDL 77, HDL 67 low risk (2.3%) Next lipids due 2025. Age-related nuclear cataract of right eye - Onset: 12/14/2023 History of thrombocytopenia - Onset: 12/19/2023 - s/p w/u by [facility] early where recomndd Q6mo CBC & f/u w/ HemeOnc if < 90. Stable ; PLT nmL (150) Age-related nuclear cataract of left eye - Onset: 12/21/2023 Allergies Allergies not reviewed (last reviewed 01/04/2024) ROCEPHIN: Hives - Reaction: Hives; No Known Allergies (InActive) OnsetDate: 12/11/2014; Comment: No Known Allergies ; Some allergies listed in Documents: #[id number], #[id number], #[id number] could not be added to this patient's chart. Please review these documents and add these allergies to the patient's chart manually as needed. Medications Medications not reviewed (last reviewed 12/20/2023) NameDate Source calcium1 Tab daily12/20/23 entered Freya Acosta Glucosamine Chondroitin1 Tab daily12/20/23 entered Freya Acosta ketorolac 0.5 % eye dropsINSTILL 1 DROP IN RIGHT EYE FOUR TIMES DAILY STARTING 3 DAYS BEFORE MZJBVCL09/15/24 filled surescripts Linzess 290 mcg capsuleTAKE 1 CAPSULE BY MOUTH EVERY DAY12/13/23 filled surescripts Multivitamin 50 Plus tabletTake 1 tablet(s) every day by oral route.12/20/23 entered Freya Karla ofloxacin 0.3 % eye dropsINSTILL 1 DROP IN RIGHT EYE FOUR TIMES DAILY STARTING 3 DAYS BEFORE KYOPCHW08/15/24 filled surescripts prednisoLONE acetate 1 % eye drops,suspensionINSTILL 1 DROP INTO RIGHT EYE SIX TIMES DAILY AND INSTILL 1 DROP INTO LEFT EYE FOUR TIMES DAILY STARTING 3 DAYS BEFORE HCUOWEN08/15/24 filled surescripts timoloL maleate 0.5 % eye dropsINSTILL 1 DROP INTO RIGHT EYE TWICE DAILY01/05/24 filled surescripts Family History Mother - Family history of malignant neoplasm Maternal Grandmother - Family history of malignant neoplasm - breast Social HistorySocial History not reviewed (last reviewed 12/20/2023) Substance UseDo you or have you ever smoked tobacco?: Never smokerWhat is your level of alcohol consumption?: OccasionalHow many times per week do you consume alcohol?: Less than 1 time per weekDo you use any illicit or recreational drugs?: NoWhat was the date of your most recent tobacco screening?: 11/02/2023Education and OccupationAre you currently employed?: NoWhat is your occupation?: RetiredAdvance DirectiveWhat is your code status?: DNRDo you have a medical power of ip attorney?: YesAdopted child, Type: Chronic Last Edited: 19 Dec 2015 1:49PM Last Reviewed Date: 20151219 SnomedCode: [id number] Never a smoker, Type: Chronic Identified By: RITA QUEEN (SIU) Last Edited: 02 Jan 2015 5:41AM Last Reviewed Date: 20150102 SnomedCode: [id number] Surgical History Repair of vaginal wall prolapse - cystocele Colonoscopy with biopsy - Colonoscopy (camera from below into colon) Additional HistoryNone recordedHistory of Present IllnessNone recordedReview of SystemsNone recordedPhysical ExamNone recordedProcedure DocumentationSC Operative Report:Operative Report: PATIENT NAME: venkatesh hair PREOPERATIVE DIAGNOSIS: Senile cataract of the left eye. POSTOPERATIVE DIAGNOSIS: Senile cataract of the left eye. PROCEDURE PERFORMED: Cataract extraction/phacoemulsificatio n with intraocular lens implant of the left eye. SURGEON: Nnamdi Herrera MD ANESTHESIA: Topical, intracameral, monitored anesthesia care. COMPLICATIONS: None. IMPLANTS: A 20.5-diopter Ethan CNAOTO intraocular lens was placed into the capsular bag for a target refraction of -0.55. HISTORY: The risks of cataract surgery were discussed with the patient in-depth previously. The risks that were discussed included, but were not limited to, infection, bleeding, tearing of the posterior lens capsule, incomplete cataract removal, loss of lens material into the posterior chamber or vitreous, low eye pressure, high eye pressure, retinal tear, retinal detachment, retinal edema, corneal edema, double vision, loss of vision, loss of the eye, and possible requirement of additional surgery. The patient expressed an understanding of these risks and wished to proceed with the surgery. Consent was signed on the day of surgery. On the day of surgery, the patient was brought into the preoperative holding area. The surgical eye was marked. The patient was then brought into the Operating Room, where they were connected to an market analysis director and pulse oximeter. Topical anesthesia in the form of tetracaine 1% was applied. The surgical eye was then prepped and draped in the usual sterile ophthalmic fashion. Following this, a lid speculum was placed into the fornices, and the operating microscope was brought into position. With the assistance of forceps, a paracentesis wound was created. The anterior chamber was then filled with Shugarcaine, followed by Viscoat to create a stable surgical base. A biplanar incision was then initiated at the temporal limbus using a microkeratome. A cystotome was then used to initiate a capsulorrhexis, which was completed in a 360-degree continuous curvilinear fashion. Balanced salt solution was then used to perform a thorough hydrodissection of the lens. The lens nucleus was then noted to be spinning freely within the bag. Primary phacoemulsification was initiated in a [id number]-rkephcc format. After 1 groove was created to divide the lens in half, the lens nucleus was cracked and then rotated. Another groove was created to divide the lens into 3 total pieces. All pieces of the nuclear lens material were removed, followed by the removal of the remaining lens cortex using the I&A handpiece. Provisc was then injected to create a space for the lens implant. No lens material remained, and the posterior capsule was noted to be intact. A 20.5-diopter CNAOTO Ethan lens was then loaded into the injector. The injector was positioned at the plane of the anterior capsular bag. The lens was injected. The lens was well centered. Viscoelastic was removed using the I&A handpiece. The wounds were stromally hydrated. Hao tests for both wounds were negative. Antibiotic eye drops were applied to the surgical eye. The patient was undraped. The patient was then transported to the PACU in stable condition, having tolerated the procedure well without any complications. DISCHARGE INSTRUCTIONS: The patient was instructed to keep the eye shield in place unless administering eyedrops. They were told to follow up in the Eye Clinic the following morning. They were told not to do any rubbing of the eye, squeezing of the eye or heavy lifting. They were told to call the Eye Clinic immediately if he experienced any drop in vision, increased pain, redness, or sensitivity to light. Power: CDE 14.41 Assessment/PlanNone recorded Return to Office Nnamdi Herrera MD for Post Op 10.EST at [address] [place] ([place]) on 01/13/2024 at 09:20 AM Miranda Genao APRN, [facility] for Established Patient 15.EST at [address] [place] ([place]) on 05/23/2024 at 09:15 AM Foster Fowler MD [address] [place] [address], [phone], [facility] 01/12/2024 13:31:49 Procedures Surgical History Date Name Laterality Status Provider Name and Address Organization Details Recorded Time 01/12/20 24 [place] Operative Report completed Nnamdi Herrera MD [address] [place] [address], [phone], [facility] 01/12/2024 12:24:45 01/04/20 24 [place] Operative Report completed Nnamdi Herrera MD [address] [place] [address], [phone], [facility] 01/04/2024 12:13:43 Colonoscopy with biopsy completed Not Available Health Note 10/27/2023 12:32:43 repair of vaginal wall prolapse completed Arielle Dubois APRN, [facility] [address] [place] [address], [phone], [facility] 12/19/2023 22:24:57 Imaging Results None recorded. Procedure Notes None recorded. Medical Equipment None Reported. Allergies Allergen ID Allergen Name Allergen Category Reaction Reaction Severity Criticality Documentation Date Start Date Code Code System Note Provider Name and Address Organization Details Recorded Time 8795175 Rocephin medicatio n hives Not available Not available 03/23/20232015 9449 RxNorm React ion: Hives ; Not Available [facility] 03:59:47 Medications Name Sig Start Date Stop Date Status Note LastModified by Organization Details LastModified Time ofloxacin 0.3 % eye drops INSTILL 1 DROP IN RIGHT EYE FOUR TIMES DAILY STARTING 3 DAYS BEFORE SURGERY 05/23 completed Not Available Not Available Not Available ondansetron HCl 4 mg tablet TAKE 1 TABLET BY MOUTH EVERY 4 TO 6 HOURS NEEDED FOR NAUSEA 12/19 completed Not Available Not Available Not Available peg-electro lyte solution 420 gram oral solution MIX AND DRINK DIRECTED 12/19 completed Not Available Not Available Not Available ketorolac 0.5 % eye drops INSTILL 1 DROP IN RIGHT EYE FOUR TIMES DAILY STARTING 3 DAYS BEFORE SURGERY 05/23 completed Not Available Not Available Not Available prednisolon e acetate 1 % eye drops,suspe nsion INSTILL 1 DROP INTO RIGHT EYE SIX TIMES DAILY AND INSTILL 1 DROP INTO LEFT EYE FOUR TIMES DAILY STARTING 3 DAYS BEFORE SURGERY 05/23 completed Not Available Not Available Not Available timolol maleate 0.5 % eye drops INSTILL 1 DROP INTO RIGHT EYE TWICE DAILY 05/23 completed Not Available Not Available Not Available Multivitami n 50 Plus tablet Take 1 tablet every day by oral route. active Not Available Not Available No t Available calcium 1 Tab daily active Not Available Not Available No t Available Linzess 290 mcg capsule TAKE 1 CAPSULE BY MOUTH EVERY DAY active Not Available Not Available No t Available Glucosamine Chondroitin 1 Tab daily active Not Available Not Available No t Available Vitals Date Recorded Body height Provider Name an d Address Organization Details Last Updated DateTime 05/23/2024 167.13 cm Yohannes LOCKETTLaxmi [facility] 05/23/2024 10:12:06 Social History Question Answer Notes LastModified by Organizat ion Details LastModified Time Tobacco Smoking Status Never Smoker Not Available Health Note 10/27/2023 12:32:44 Do You Have An Advance Directive? Yes [email or web address] Information not available 10/27/2023 What Is Your Level Of Caffeine Consumption? Moderate [email or web address] Information not available 10/27/2023 What Is Your Code Status? DNR [email or web address] Information not available 10/27/2023 How Many Times Per Week Do You Exercise? 3-4 Times Per Week [email or web address] Information not available 10/27/2023 Do You Have A Medical Power Of Personal Computer Network Analyst? Yes [email or web address] Information not available 10/27/2023 What Was The Date Of Your Most Recent Tobacco Screening? 11/02/2023 [email or web address] Information not available 10/27/2023 What Is Your Relationship Status? [email or web address] Information not available 10/27/2023 Sex: Unknown Functional Status Question Answer Note LastModified by Organizat ion Details LastModified Time How many times per week do you consume alcohol? Less than 1 time per week [email or web address] Information not available 10/27/2023 Do you use any illicit or recreational drugs? No [email or web address] Information not available 10/27/2023 What is your level of alcohol consumption? Occasional [email or web address] Information not available 10/27/2023 Are you currently employed? No [email or web address] Information not available 10/27/2023 What is your occupation? Retired [email or web address] Information not available 10/27/2023 What is your exercise level? Moderate [email or web address] Information not available 10/27/2023 Mental Status None recorded. Family History Relationship Description Onset Age of this Age Resolved Age Notes LastModified by Organization Details LastModified Time Mother Family history of malignant neoplasm [email or web address] Not available 2023 12:32:42 Maternal Grandmother Family history of malignant neoplasm breast [id number] Not available 2023 22:25:35 Medical History Condition Response High Blood Pressure N COPD N Depression N Anxiety Disorder N Arthritis N Cancer N Stroke N Fibromyalgia N Kidney Disease N Attention-deficit Hyperactivity Disorder N Thyroid Problems N Anemia N Diabetes N Bleeding Disorder N Hyperlipidemia N Asthma N Seizures N Heart Disease N Osteoporosis N Gynecological HistoryNo gynecological history recorded. Obstetrics History GPAL:G 0 P 0 0 0 0 Immunizations Vaccine Type Date Status Note Provider Nam e and Address Organization Details Recorded Time zoster recombinant 9 completed Freya Acosta [facility] 12/20/2023 11:27:31 zoster recombinant 8 completed Freyanuvia Arorae [facility] 12/20/2023 11:27:31 Influenza, adjuvanted, quadrivalent, PF 3 completed Freyanuvia Arorae [facility] 12/20/2023 11:27:31 COVID-19, mRNA, LNP-S, PF, 100 mcg/0.5mL dose or 50 mcg/0.25mL dose 1 completed Freyanuvia Arorae [facility] 12/20/2023 11:27:31 COVID-19, mRNA, LNP-S, PF, 100 mcg/0.5mL dose or 50 mcg/0.25mL dose 1 completed Freyanuvia Arorae [facility] 12/20/2023 11:27:31 COVID-19, mRNA, LNP-S, PF, 100 mcg/0.5mL dose or 50 mcg/0.25mL dose 1 completed Freyanuvia Arorae [facility] 12/20/2023 11:27:31 Pneumococcal conjugate PCV20, polysaccharide [id number] conjugate, adjuvant, PF 3 completed Freyanuvia Arorae [facility] 12/20/2023 11:27:31 COVID-19, mRNA, LNP-S, bivalent, PF, 50 mcg/0.5 mL or 25mcg/0.25 mL dose 2 completed Freyanuvia Arorae [facility] 12/20/2023 11:27:31 COVID-19, mRNA, LNP-S, PF, 50 mcg/0.5 mL 3 completed Freyanuvia Arorae [facility] 12/20/2023 11:27:31 Tdap 4 completed Freyanuvia Arorae [facility] 12/20/2023 11:27:31 Tdap 3 completed Freyanuvia Arorae [facility] 12/20/2023 11:27:31 Influenza, split virus, trivalent, preservative 1 [facility] 11:27:31 Influenza, split virus, trivalent, preservative 5 completed [facility]/2023 11:27:31 Influenza, split virus, trivalent, PF 0 completed [facility]/2023 11:27:31 Influenza, split virus, trivalent, PF 7 completed [facility]/2023 11:27:31 Influenza, split virus, trivalent, PF 6 completed [facility]/2023 11:27:31 Influenza, split virus, trivalent, PF 6 completed [facility]/2023 11:27:31 Influenza, split virus, quadrivalent, PF 9 completed [facility] 12/20/2023 11:27:31 Influenza, split virus, quadrivalent, PF 2 completed [facility] 12/[facility]/2023 11:27:31 Influenza, split virus, quadrivalent, PF 8 completed [facility] 12/20/2023 11:27:31 Influenza, split virus, quadrivalent, PF 4 completed [facility] 12/20/2023 11:27:31 Past Encounters Encounter ID Performer Location Encounter Start Date Encounter Closed Date Diagnosis/Indication Diagnosis SNOMED-CT Code Diagnosis ICD10 Code Diagnosis Note [id number] Nicole Quach APRN, [facility] [address] [facility] ([place]) [address] [facility],[address] [place] [address] 11/02/2023 11:15:03 11/02/2023 12:24:22 Constipation 26959074 K59.00 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 History of polyp of colon 526129491 Z86.010 [id number] Arielle Dubois APRN, [facility] ([place]) [address] [place] [address] 12/20/2023 11:23:03 12/20/2023 11:51:52 Age-related nuclear cataract of right eye 4476035879 41086 H25.11 Preoperative state 79307 002 Z01.818 [id number] [facility] ([place] [address] [place] [address] 01/04/2024 06:10:40 01/11/2024 15:33:55 [id number] Nnamdi Herrera MD [facility] ([place]) [address] [place] [address], [address] [place] [address] 01/04/2024 06:10:41 01/05/2024 21:21:35 [id number] Arley Giron MD [facility] ([place]) [address] [place] [address] 01/12/2024 06:56:10 01/24/2024 11:42:47 [id number] Nnamdi Herrera MD [facility] [place]) [address] [place] [address], [address] [place] [address] 01/12/2024 06:56:11 01/12/2024 17:12:13 [id number] Miranda Genao APRN, [facility] 4th Derm ([place]) [address] [facility],4[address] [place] [address] 05/23/2024 10:00:32 05/23/2024 10:50:51 Melanocytic nevus of right upper limb 956773933 D22.61 Melanocyti c nevus of right lower limb 8763864699 37472 D22.71 Seborrheic keratosis 394 638859 L82.1 Lentigo - freckle 531190 006 L81.4 History of malignant neoplasm of skin excluding melanoma 697777411 Z85.828 Actinic keratosis 240646 007 L57.0 Sharita 580933416 L71.9 Health Concerns Section Related Observation LastModified by Organization Detai ls LastModified Time None Recorded Concern Status LastModified by Organization Details LastModified Time None Recorded Advance Directives Directive Y: Payers Insurance Date Sequence Insurance Name Policy Number Policy Posada Covered Member ID Posada Member ID Guarantor Name 05/24/2024 1 [place] Venkatesh Hair [id number] 1 Venkatesh Hair 05/23/2024 2 [employer] (MEDICARE SUPPLEMENT) PLAN N Venkatesh Hair [id number] Venkatesh Hair 05/23/2024 [place] - PART A - [facility] (MEDICARE) Venkatesh Hair [id number] 1 Venkatesh Hair Notes Date Note Type Note Provider Name and Address Organization Details Recorded Time 4 text/html [facility] PRE-ANESTHETIC EVALUATIONReported bypatient.Reason for Visit:PROPOSED PROCEDURE: PHACO / IOL RIGHT; SURGEON: Javier; PREOP DIAGNOSIS: Cataract Review of Systems General:Exercise tolerance moderate; Denies SOB, CLAY, PND; Denies chest pain or chest tightness Cardiac:No Hx of CAD; Hyperlipidemia; S/P Ablation procedure; H/O SVT Pulmonary:Respiratory system at baseline Prior Anesthetic Complication:no history of anesthesia complications Family Anesthetic Hx:no history of anesthesia complications Physical Exam: AirwayMP II TeethCrowns NeckFull range of motion CardiovascularRegular rate and rhythm RespiratoryClear to auscultation bilaterally; No wheeze noted GastrointestinalNPO status >6 hrs solids, >2 hrs clear liquids Vital Signs:Vital signs reviewed. Please refer to nursing preop note for values Assessment:ASA PS: II Plan:MAC Discussion:I have discussed with the patient the anesthetic plan, alternatives, pertinent risks, and complications; including but not limited to PONV, dental injury, sore throat, NE, stroke, etc. All questions were answered. Patient verbalize(s) understanding and agree(s) to proceed. Cliff Giron MD [address] [place] [address], [phone], [facility] 01/04/2024 06:48:14 4 text/html [facility] PRE-ANESTHETIC EVALUATIONReported bypatient.Reason for Visit:PROPOSED PROCEDURE: PHACO / IOL LEFT; SURGEON: Jaiver; PREOP DIAGNOSIS: Cataract Review of Systems General:No change in medical hx since last procedure; Exercise tolerance moderate; Denies SOB, CLAY, PND; Denies chest pain or chest tightness Cardiac:No Hx of CAD; Hyperlipidemia; S/P Ablation procedure; H/O SVT Pulmonary:Respiratory system at baseline Prior Anesthetic Complication:no history of anesthesia complications Family Anesthetic Hx:no history of anesthesia complications Physical Exam: AirwayMP II TeethCrowns NeckFull range of motion CardiovascularRegular rate and rhythm RespiratoryClear to auscultation bilaterally; No wheeze noted GastrointestinalNPO status >6 hrs solids, >2 hrs clear liquids Vital Signs:Vital signs reviewed. Please refer to nursing preop note for values Assessment:ASA PS: II Plan:MAC Discussion:I have discussed with the patient the anesthetic plan, alternatives, pertinent risks, and complications; including but not limited to PONV, dental injury, sore throat, NE, stroke, etc. All questions were answered. Patient verbalize(s) understanding and agree(s) to proceed. Cliff Giron MD [address] [place] [address], [phone], [facility] 01/12/2024 07:49:46 5 text/html TBSElocation: upper lip, left cheek, left neckduration: 6 monthitchyHx of skin cancer- yes per pt report Patient was informed that Dr. Traylor is the supervising physician for Miranda Genao (Derm) and the physician is available for consultation if needed. Miranda Genao, MEASUREMENT COORDINATOR, [facility] [address] [place] [address], [phone], [facility] 05/24/2024 10:06:27 OBGyn Episode No OBEpisode recorded.
--- OUTSIDE RECORDS SUMMARY | 2024-07-02 01:01 | XMS_ITS | Clinical Summary ---
Author Organization [facility] Address [address] [place] [address] Care Team Providers Care Early Years Teacher Name Role Phone Foster Fowler MD Primary Care Provider [phone] Social History Tobacco Use Types Packs/Day Years Used Date Smoking Tobacco: Never Assessed Comments Unknown Sex and Gender Information Value Date Recorded Sex Assigned at Not on file Legal Sex Female 5:59 PM [employer] Gender Identity Not on file Sexual Orientation Not on file Plan of Treatment Health Maintenance Due Date Last Done Comments Colorectal Cancer Screening Colonoscopy (10 Years) 1957 Hepatitis C 10/25/1975 Mammogram Screening 1997 Annual Medicare Wellness Visit 2022 Dexa Scan (General) 2022 COVID-19 Vaccine ( season) 2023 12/21/2022, 12/03/2021, 01/21/2021, Additional history exists RSV Immunization or 60+ Years (1 - 1-dose 75+ series) 2032 DTaP, Tdap and Td Vaccines (3 - Td or Tdap) 04/02/2033 04/02/2023, 12/11/2012 Zoster Vaccines Completed 05/22/2018, 12/05/2017 Pneumococcal Vaccine: 50+ Years Completed 01/24/2023 Meningococcal B Vaccine Aged Out No l onger eligible based on patient's age to complete this topic Meningococcal Vaccine Aged Out No florinda yuli eligible based on patient's age to complete this topic RSV Immunizations Under 20 Months Aged Out No longer eligible based on patient's age to complete this topic Insurance MED REPLACE [employer] Care Teams Early Years Teacher Relationship Specialty Start Date End Date Foster Fowler MD [address] [place] [address] PCP - General FAMILY PRACTICE 05/16/23
--- NOTE | 2024-07-02 08:41 | WPDHPUPDATE1 ---
History and Physical Update Update Date/Time: 07/02/24 08:41 History and Physical has been reviewed, including an updated exam of the patient. There are NO changes in the patient's condition. Risks, benefits, and alternatives have been discussed and questions answered. Patient agrees to proceed with procedure.
--- NOTE | 2024-07-02 08:41 | PM.HPGS ---
History of Present Illness History of Present Illness Consent: Risks, benefits, and alternatives have been discussed and questions answered. Patient agrees to proceed with procedure. Chief complaint: post menopausal bleeding Narrative: Maura Reeves is a 68 year old female with postmenopausal bleeding. Pelvic ultrasound shows a thickened endometrium at 8mm. It was recommended to undergo D&C hysteroscopy. Risks of infection, bleeding, perforation, and possible pathology are reviewed. Patient voices understanding and agrees to proceed. Review of Systems Review of Systems: not repeated day of surgery; patient states no changes in status PMFSH Past Medical History Medical History Rectovaginal fistula repaired in 1997 Paroxysmal tachycardia status post cardiac ablation in 2014 History of ITP Irritable bowel syndrome (normal spontaneous vaginal delivery) x2 Surgical History Surgical History (Updated 07/02/24 @ 08:44 by Lenore Harris MD) History of hysteroscopy 06/14 History of cardiac radiofrequency ablation History of rectal surgery Repair of rectovaginal fistula 98 S/P anterior colporrhaphy and posterior 2018 Social History Social History Smoking status: Never smoker Alcohol intake: current Alcohol use details: 1 per month Substance use: never Living arrangements: with family Additional living arrangements comments: Spiritual care concerns: No Meds Home Medications and Allergies Home Medications ?Medication ?Instructions ?Recorded ?Confirmed ?Type calcium 600 mg capsule 600 mg PO DAILY 05/24/23 06/25/24 History glucosamine sulf dipot 1 cap PO DAILY 05/24/23 06/25/24 History chlr,msm,chond 550 mg-C 30 mg-cornel 1 mg capsule (Glucosamine Chondroitin) linaclotide 290 mcg capsule 290 mcg PO DAILY 05/24/23 06/25/24 History (Linzess) multivitamin 1 tablet PO DAILY 05/24/23 06/25/24 History omega 3-eqq-fop-fish oil 1,000 mg 1 cap PO DAILY 05/24/23 06/25/24 History (120 mg-180 mg) capsule (Fish Oil) Allergies Allergy/AdvReac Type Severity Reaction Status Date / Time Cephalosporins Allergy Severe HIVES Verified 06/25/24 15:47 ceftriaxone Allergy Unknown HIVES Verified 06/25/24 15:47 Exam Const: General: healthy appearing and alert Orientation/consciousness: patient oriented x3 Resp: Effort & Inspection: normal respiratory effort : External Female Exam: normal external appearance Speculum Exam - Vagina: normal appearance of the vagina and normal vaginal discharge Speculum Exam - Cervix: normal appearance of the cervix Bimanual exam- vagina & uterus: uterine size normal and consistency normal Bimanual Exam- Adnexa, other: normal adnexae and No adnexal tenderness Neuro: General: patient oriented x3 Assessment and Plan Assessment and plan (1) Post-menopausal bleeding: Code(s): N95.0 - Postmenopausal bleeding Status: Acute Assessment and Plan: Plan to proceed with D&C hysteroscopy
[2024-07-02] MEDS: LACTATED RINGERS 1,000 ML 30 ML IV CONT (13:00)
[2024-07-02] MEDS: ACETAMINOPHEN 500 MG TABLET 1000 MG PO (13:09)
[2024-07-02 13:15] VITALS: BP 125/63; PULSE 50; RESP 16; TEMP 36.4; O2SAT 100
--- NOTE | 2024-07-02 13:58 | P.PNAN_ITS ---
Anes - Initial Pre Proc Eval Procedure: Operation Date: 07/02/24 14:30 Proposed Procedures p Hysteroscopy Dilation and Curettage - Lenore Harris MD Date/Time: 07/02/24 13:58 Surgeon: Lenore Harris MD Pre Op Diagnosis: post menopausal bleeding Patient Data Age: 68 Gender: F Height: 1.65 m Weight: 51.5 kg Last Vital Signs Temp 36.4 C 07/02/24 13:15 Pulse 50 L 07/02/24 13:15 Resp 16 07/02/24 13:15 BP 125/63 07/02/24 13:15 Pulse Ox 100 07/02/24 13:15 O2 Del Method Room Air 07/02/24 13:15 Allergies Allergy/AdvReac Type Severity Reaction Status Date / Time Cephalosporins Allergy Severe HIVES Verified 07/02/24 13:08 ceftriaxone Allergy Unknown HIVES Verified 07/02/24 13:08 Home Medications ?Medication ?Instructions ?Recorded ?Confirmed ?Type calcium 600 mg capsule 600 mg PO DAILY 05/24/23 06/25/24 History glucosamine sulf dipot 1 cap PO DAILY 05/24/23 06/25/24 History chlr,msm,chond 550 mg-C 30 mg-cornel 1 mg capsule (Glucosamine Chondroitin) linaclotide 290 mcg capsule 290 mcg PO DAILY 05/24/23 06/25/24 History (Linzess) multivitamin 1 tablet PO DAILY 05/24/23 06/25/24 History omega 7-dmp-uqw-fish oil 1,000 mg 1 cap PO DAILY 05/24/23 06/25/24 History (120 mg-180 mg) capsule (Fish Oil) Patient hx anesthesia problems: none Family hx anesthesia problems: none Results Review: All pre-operative results and documents have been reviewed as part of the pre- operative evaluation. [facility] Past Medical History Medical History Rectovaginal fistula repaired in 1997 Paroxysmal tachycardia status post cardiac ablation in 2014 History of ITP Irritable bowel syndrome (normal spontaneous vaginal delivery) x2 Surgical History Surgical History History of hysteroscopy 06/14 History of cardiac radiofrequency ablation History of rectal surgery Repair of rectovaginal fistula 98 S/P anterior colporrhaphy and posterior 2018 Social History Social History Smoking status: Never smoker Alcohol intake: current Alcohol use details: 1 per month Substance use: never Living arrangements: with family Additional living arrangements comments: Spiritual care concerns: No Anes - Eval Final PreProcedure Day of Procedure 07/02/24 13:58 Patient weight: thin Heart: regular rate and rhythm Lungs: clear to auscultation Airway: Mallampati scale class II Neurological: alert and oriented Last oral intake: >/= 8 hours ASA classification: II Emergent: no Anesthetic plan: proceed Anesthesia type and monitoring: general GIVS and standard monitoring Results Review: All pre-operative results and documents have been reviewed as part of the pre- operative evaluation. Informed Consent: The patient's anesthetic plan and its attendant risks and benefits were discussed with the patient/family/POA. Questions were solicited and answers provided to the satisfaction of the patient/family/POA.
--- NOTE | 2024-07-02 15:15 | W.PM.PROC2 ---
Procedure Note - Detailed Date of Procedure 07/02/24 Pre-op Diagnosis post menopausal bleeding Post-op Diagnosis Same Procedure Performed D&C hysteroscopy Surgeon Lenore Harris MD Anesthesia MAC Findings Uterus sounds to 4.5cm and is severely atrophic. Description of Procedure The patient is taken to operating and placed under anesthesia in the dorsal lithotomy position. She was prepped and draped in the usual sterile fashion. [place] speculum was placed in the vagina and the cervix was grasped on the anterior lip with a tenaculum. The uterus is sounded to 4.5cm. The diagnostic hysteroscope was placed. With no abnormalities noted, pictures were taken and the hysteroscope was removed. The sharp curette was used to curette the endometrium until a good uterine cry was noted in all areas. Minimal if any material was obtained consistent with the visual appearance. All instruments were removed. Sponge, needle, and instrument counts are correct per the OR staff. The patient was taken to recovery in stable condition. Estimated Blood Loss 5 Drains No Packing No Pathology Yes (Endometrial curettings) Complications No immediate complications Condition Stable Disposition PACU
[2024-07-02 15:16] VITALS: BP 97/56; PULSE 54; RESP 14; O2SAT 100
[2024-07-02 15:46] VITALS: BP 118/65; PULSE 50; RESP 16
[2024-07-02 16:03] VITALS: BP 118/63; PULSE 58; RESP 18
== END 2024-07-02 16:06 | disposition home or self-care (01) ==
PROVIDERS: PCP Nurse Practitioner; Visit Provider Obstetrics & Gynecology Gynecology
PROC: 0U5B8ZZ Destruction of Endometrium, Via Natural or Artificial Opening Endoscopic (ICD-10-PCS; CPT 58563; principal; 2024-07-02 14:30)
DX: R93.89 Abnormal findings on diagnostic imaging of other specified body structures (principal); N85.8 Other specified noninflammatory disorders of uterus; K58.9 Irritable bowel syndrome, unspecified; I47.9 Paroxysmal tachycardia, unspecified; Z98.890 Other specified postprocedural states; Z87.19 Personal history of other diseases of the digestive system; Z86.79 Personal history of other diseases of the circulatory system; Z86.2 Personal history of diseases of the blood and blood-forming organs and certain disorders involving the immune mechanism
CPT/HCPCS: 58558; 88305; A9270; J2704; J3010; J7120

== ENCOUNTER 2025-01-10 13:16 | Outpatient (CLI) | payer MEDICARE, SELFPAY ==
--- NOTE | ~2025-01-10 | DEXA_ITS ---
Bone Density Report Name: EMANUEL GRAY Age: 69 Sex: Female Ethnicity: White Date of : 1955 Indication: postmenopausal; screening for osteoporosis; height loss; Referring Provider: CASTILLO SMITH Study: Bone densitometry was performed. Exam Date: January 10, 2025 Accession number: [id number] Bone Density: Region BMD T-score Z-score Classification AP Spine(L2, L3) 1.258 1.8 3.8 Normal Femoral Neck (Left) 0.865 0.1 1.8 Normal Total Hip (Left) 0.959 0.1 1.5 Normal Femoral Neck (Right) 0.860 0.1 1.7 Normal Total Hip (Right) 0.933 -0.1 1.3 Normal Total Hip Mean 0.946 0.0 1.4 Normal World Health Organization criteria for BMD impression classify patients as: Normal (T-score at or above -1.0), Osteopenia (T-score between -1.0 and -2.5), or Osteoporosis (T-score at or below -2.5). 10-year Fracture Risk: FRAX not reported because: All T-scores for Spine Total, Hip Total, Femoral Neck at or above -1.0 Previous Exams: -- Region Exam Age BMD T-score BMD Change BMD Change Date g/cm2 vs Baseline vs Previous -- AP Spine (L2-L3) 01/10/2025 69 1.258 1.8 -8.2%* -4.8%* 07/10/2020 64 1.321 2.4 -3.7%* 2.8%* 04/25/2017 61 1.285 2.1 -6.3%* -5.2%* 03/18/2014 58 1.355 2.7 -1.2% -1.2% 03/30/2010 54 1.371 2.8 Total Hip(Left) 01/10/2025 69 0.959 0.1 -13.6%* -8.8%* 07/10/2020 64 1.051 0.9 -5.2%* -0.7% 04/25/2017 61 1.059 1.0 -4.5%* -1.4% 03/18/2014 58 1.074 1.1 -3.1%* -3.1%* 03/30/2010 54 1.109 1.4 Total Hip(Right) 01/10/2025 69 0.933 -0.1 -12.5%* -5.6%* 07/10/2020 64 0.989 0.4 -7.3%* -0.4% 04/25/2017 61 0.993 0.4 -6.9%* -5.6%* 03/18/2014 58 1.053 0.9 -1.3% -1.3% 03/30/2010 54 1.067 1.0 -- *Denotes significance at 95% confidence level, LSC for AP Spine = 0.022 g/cm2, LSC for Total Hip = 0.027 g/cm2 Rate of change results reflect vertebral levels common to all scans Clinical Information Provided by Patient: Has used the following medications: Calcium Patient maximum height was 66 Menopause Age: 56 Drinks caffeinated beverages Onset of menses at age 15 Number of children 2 Impression: The patient has normal bone mass. The BMD for the AP Spine (L2-L3) decreased, changing by -4.8% since the last DXA exam. The BMD for the Total Hip(Left) decreased, changing by -8.8% since the last DXA exam. The BMD for the Total Hip(Right) decreased, changing by -5.6% since the last DXA exam. Discussion: BONE DENSITY IS ABOVE THE MINIMUM DESIRABLE LEVEL AT ALL SKELETAL SITES TESTED. This patient?s bone mineral density is above the minimum desirable level (T-score -1.0 or better) at all sites measured. The patient should follow a healthful lifestyle (good nutrition with adequate calcium and vitamin D, and appropriate weight-bearing exercise). Follow-Up: Consider repeating this study in 3 to 4 years to reassess this patient's status, or sooner if there is some new clinical indication. Reported by: BRENNAN on 01/10/2025 1:56:00 PM. Reviewed, dictated and finalized at location A.
--- NOTE | ~2025-01-10 | MM_ITS ---
EXAMINATION: MM screening savage BI w lisa HISTORY: Screening TECHNIQUE: Craniocaudal and mediolateral oblique 3-D tomosynthesis images were obtained and synthetic 2-D images were generated. CAD analysis was submitted and interpreted. COMPARISON: Comparison to multiple prior studies sequentially, with oldest reviewed study dated , 05/21/2019 BREAST PARENCHYMAL COMPOSITION: Dense: The breasts are heterogeneously dense, which may obscure small masses. FINDINGS: There is no evidence of suspicious mass, calcification, or architectural distortion to suggest malignancy in either breast. IMPRESSION: 1. No mammographic evidence of malignancy. 2. Recommend routine screening mammography in one year. BI-RADS Category 1: Negative Reviewed, dictated and finalized at location B. [employer]
== END 2025-01-10 13:17 | disposition home or self-care (01) ==
PROVIDERS: PCP Obstetrics & Gynecology Gynecology; Visit Provider Obstetrics & Gynecology Gynecology
DX: Z12.31 Encounter for screening mammogram for malignant neoplasm of breast (principal); Z78.0 Asymptomatic menopausal state
CPT/HCPCS: 77063; 77067; 77080